=== PATIENT | male | born 1955 | race Caucasian/White ===

== ENCOUNTER 2024-09-25 11:59 | Outpatient (CLI) | payer MEDICARE, OTHER | END 2024-09-25 12:00 | disposition home or self-care (01) | LOC: CSHMRI 11:59 | PROVIDERS: ATTEND Family Medicine | DX: E51.2 Wernicke's encephalopathy (principal); F03.90 Unspecified dementia, unspecified severity, without behavioral disturbance, psychotic disturbance, mood disturbance, and anxiety; I67.82 Cerebral ischemia; Z86.73 Personal history of transient ischemic attack (TIA), and cerebral infarction without residual deficits | CPT/HCPCS: 70551 ==